=== PATIENT | female | born 1930 | race Caucasian/White ===

== ENCOUNTER → 2018-05-21 | Outpatient (CLI) | payer MEDICARE ==
[~2018-05-21] MED LIST: IOHEXOL-350 50ML VIAL IV ONE
== END | disposition home or self-care (01) ==
LOC: RAH 07:53
PROVIDERS: ATTEND Internal Medicine Cardiovascular Disease
DX: I67.1 Cerebral aneurysm, nonruptured (principal)
CPT/HCPCS: 70496; 70498; Q9967

== ENCOUNTER → 2018-05-25 | Outpatient (CLI) | payer MEDICARE | END | disposition home or self-care (01) | LOC: SHCH 08:01 | PROVIDERS: ATTEND Internal Medicine Cardiovascular Disease | DX: R60.9 Edema, unspecified (principal) | CPT/HCPCS: 93975 ==

== ENCOUNTER → 2018-06-02 | Outpatient (CLI) | payer MEDICARE ==
[~2018-06-02] VITALS: Ht 152.4 cm; Wt 58.1 kg
[~2018-06-02] MED LIST changes: +ASPI-1181 PO; +CALCIUM PO; +CLON0.1T PO; +ERGO400C PO; +FISH1CAP20 PO; -IOHEXOL-350 50ML VIAL IV ONE; +KETO5DRO6 OU; +LOSA100T58 PO; +METO-391 PO; +MULT1CAP32 PO; +PROP15DR OU; +REGADENOSON 0.4 MG/5 ML PF SYG IVP SCH
== END | disposition home or self-care (01) ==
LOC: SHCH 08:40
PROVIDERS: ATTEND Internal Medicine Cardiovascular Disease
DX: R06.00 Dyspnea, unspecified (principal); R00.2 Palpitations
CPT/HCPCS: 78452; 93017; 96374; A9500 ×2; J2785

== ENCOUNTER 2018-06-04 09:54 | Emergency (ER) | payer MEDICARE ==
[2018-06-04] MEDS ORDERED: NITROGLYCERIN 1GM/1 INCH PACKET TD ONE (10:23)
[2018-06-04 10:45] LABS: EOSINOPHILS % (AUTO) 2.3 % (0.0-8.0); HEMATOCRIT 46.5 % (36-48); LYMPHOCYTES % (AUTO) 22.3 % (21.0-51.0); MEAN CORPUSCULAR HEMOGLOBIN 31.3 pg (27.0-33.0); MEAN CORPUSCULAR HGB CONC 34.2 g/dL (32.0-36.0); MEAN CORPUSCULAR VOLUME 91.4 fL (79-99); MONOCYTES % (AUTO) 8.1 % (3.0-13.0); NEUTROPHILS % (AUTO) 66.3 % (40.0-77.0); NUCLEATED RED BLOOD CELLS 0.1 % (0.0-0.19); PLATELET COUNT (AUTO) 257 K/uL (130-400); RED BLOOD CELL COUNT(AUTO) 5.08 MIL/uL (4.00-5.50); RED CELL DISTRIBUTION WIDTH 13.4 % (11.0-15.5); WHITE BLOOD COUNT (AUTO) 4.4 K/uL (4.8-10.8)
[2018-06-04 10:53] LABS: CREATININE 0.8 mg/dL (0.5-1.5); POTASSIUM 4.1 mmol/L (3.5-5.1)
[2018-06-04 10:59] LABS: INR 0.91 (0.85-1.15); PARTIAL THROMBOPLASTIN TIME 26.8 SEC (26.3-35.5); PROTHROMBIN TIME 9.6 SEC (9.6-11.6)
[2018-06-04 11:02] LABS: ALBUMIN 3.9 g/dL (3.5-5.0); BILIRUBIN,TOTAL 0.6 mg/dL (0.2-1.0); TOTAL PROTEIN, SERUM 7.8 g/dL (6.0-8.3)
[2018-06-04 11:03] LABS: B-TYPE NATRIURETIC PEPTIDE 84 pg/mL (0-100)
[2018-06-04 11:05] LABS: APPEARANCE,URINE Clear (CLEAR); BILIRUBIN,URINE Negative (NEGATIVE); COLOR,URINE Yellow (YELLOW); GLUCOSE, URINE (UA) Negative (NEGATIVE); KETONES,URINE Negative (NEGATIVE); LEUKOCYTE ESTERASE ,URINE Trace (NEGATIVE); NITRATE,URINE Negative (NEGATIVE); OCCULT BLOOD,URINE Negative (NEGATIVE); PH,URINE 7.5 (5.0-8.0); PROTEIN,URINE Trace mg/dL (NEGATIVE)
[2018-06-04 11:32] LABS: BACTERIA,URINE Rare /HPF (None Seen); RBC,URINE 0-1 /HPF (0-1); SQUAMOUS EPITHELIAL CELL,UR Rare /HPF (0-2); WBC,URINE 0-1 /HPF (0-1)
[2018-06-04] MEDS ORDERED: CLONIDINE HCL 0.1 MG TABLET ONE (11:33)
[2018-06-09] MEDS ORDERED: CLON0.1T PO (14:40)
[2018-06-09] MEDS ORDERED: ASPI-1181 PO (14:40)
[2018-06-09] MEDS ORDERED: ERGO400C PO (14:40)
[2018-06-09] MEDS ORDERED: KETO5DRO6 OU (14:40)
[2018-06-09] MEDS ORDERED: LOSA100T58 PO (14:40)
[2018-06-09] MEDS ORDERED: FISH1CAP20 PO (14:40)
[2018-06-09] MEDS ORDERED: PROP15DR OU (14:40)
[2018-06-09] MEDS ORDERED: METO-391 PO (14:40)
[2018-06-09] MEDS ORDERED: MULT1CAP32 PO (14:40)
[2018-06-09] MEDS ORDERED: CALCIUM PO (14:40)
== END 2018-06-04 12:47 | disposition home or self-care (01) ==
LOC: EDH 09:54
DX: I10 Essential (primary) hypertension (principal); R51 Headache; Z88.0 Allergy status to penicillin; Z88.2 Allergy status to sulfonamides; Z90.49 Acquired absence of other specified parts of digestive tract
CPT/HCPCS: 36415; 70450; 71045; 80053; 81001; 82550; 83880; 84484; 85025; 85610; 85730; 93005; 99291

== ENCOUNTER 2018-06-10 05:48 | Day surgery (SDC) | payer MEDICARE ==
[2018-06-09 13:45] VITALS: BP 203/77
[2018-06-09 14:08] LABS: APPEARANCE,URINE CLEAR (CLEAR); BASOPHILS % (AUTO) 0.6 % (0.0-5.0); BILIRUBIN,URINE NEGATIVE (NEGATIVE); COLOR,URINE YELLOW (YELLOW); EOSINOPHILS % (AUTO) 2.1 % (0.0-8.0); GLUCOSE, URINE (UA) NEGATIVE (NEGATIVE); HEMATOCRIT 42.4 % (36-48); KETONES,URINE NEGATIVE (NEGATIVE); LEUKOCYTE ESTERASE ,URINE SMALL (NEGATIVE); LYMPHOCYTES % (AUTO) 20.1 % (21.0-51.0); MEAN CORPUSCULAR HEMOGLOBIN 32.2 pg (27.0-33.0); MEAN CORPUSCULAR HGB CONC 35.1 g/dL (32.0-36.0); MEAN CORPUSCULAR VOLUME 91.6 fL (79-99); MONOCYTES % (AUTO) 9.7 % (3.0-13.0); NEUTROPHILS % (AUTO) 67.5 % (40.0-77.0); NITRATE,URINE NEGATIVE (NEGATIVE); OCCULT BLOOD,URINE NEGATIVE (NEGATIVE); PH,URINE 6.5 (5.0-8.0); PLATELET COUNT (AUTO) 257 K/uL (130-400); PROTEIN,URINE NEGATIVE (NEGATIVE); RED BLOOD CELL COUNT(AUTO) 4.63 MIL/uL (4.00-5.50); RED CELL DISTRIBUTION WIDTH 13.3 % (11.0-15.5); UROBILINOGEN,URINE 0.2 mg/dL (0.2-1.0); WHITE BLOOD COUNT (AUTO) 4.8 K/uL (4.8-10.8)
[2018-06-09 14:19] LABS: CREATININE 0.8 mg/dL (0.5-1.5); POTASSIUM 4.4 mmol/L (3.5-5.1)
[2018-06-09 14:21] LABS: INR 0.96 (0.85-1.15); PROTHROMBIN TIME 10.1 SEC (9.6-11.6)
[2018-06-09 14:22] LABS: BACTERIA,URINE Rare /HPF (None Seen); RBC,URINE None Seen /HPF (0-1); SQUAMOUS EPITHELIAL CELL,UR 0-2 /HPF (0-2); WBC,URINE 0-1 /HPF (0-1)
--- NOTE | 2018-06-09 15:17 | NUR ---
[facility] LEFT MESSAGE TO INFECTION CONTROL DEJUAN HEARD OF HAVING MRSA IN 2009 S/P OPEN CHOLECYSTECTOMY AND ERCP TO REMOVE BILE DUCT STONE. HAD PERFORATION OF INTESTINE AND WAS AT [facility] X 1 MONTH AND AT [facility] 1 MONTH.
--- NOTE | 2018-06-09 15:21 | NUR ---
[facility] INVOICE CHECKER NOTIFIED OF PATIENT HISTORY OF MRSA.
[2018-06-10] VITALS (12 sets, daily range): BP systolic 132–212; BP diastolic 57–81
[~2018-06-10] VITALS: Ht 478 cm; Wt 58.2 kg
[~2018-06-10 05:48] MED LIST changes: -REGADENOSON 0.4 MG/5 ML PF SYG IVP SCH; +SODIUM CHLORIDE 0.9% 500ML 500 ML IV SCH
[2018-06-10] MEDS ORDERED: SODIUM CHLORIDE 0.9% 1000ML 1,000 ML IV ONE (06:15)
[2018-06-10] MEDS ORDERED: HEPARIN SODIUM 1000UNIT/ML 10ML VIAL ONE (09:44)
[2018-06-10] MEDS ORDERED: SODIUM BICARB 50MEQ 50ML VIAL ONE (09:44)
[2018-06-10] MEDS ORDERED: NITROGLYCERIN 5 MG/ML 10 ML VIAL IV ONE (09:45)
[2018-06-10] MEDS ORDERED: LIDOCAINE HCL 2% 20ML ONE (09:45)
[2018-06-10] MEDS ORDERED: IOHEXOL 350 MG/ML 100ML INFUS..BTL IV ONE (09:50)
--- NOTE | 2018-06-10 10:00 | NUR ---
TO CREDIT REFERENCE CLERK PT TAKEN TO CREDIT REFERENCE CLERK VIA BED BY ALISON HOFFMANN RN. PT STABLE. VOIDED PRIOR.
[2018-06-10] MEDS ORDERED: MEPERIDINE-PF 25 MG/ML SYG ONE (10:25)
[2018-06-10] MEDS ORDERED: MIDAZOLAM HCL 1 MG/ML 2ML VIAL ONE (10:26)
[2018-06-10] MEDS ORDERED: NITROGLYCERIN 4.1 GM SPRAY TL ONE (10:42)
[2018-06-10] MEDS ORDERED: HYDRALAZINE HCL 20 MG/ML VIAL ONE (10:42)
[2018-06-10] MEDS ORDERED: SODIUM CHLORIDE 0.9% 1000ML 1,000 ML IV SCH (11:07)
[2018-06-10] MEDS ORDERED: ACETAMINOPHEN-CODEINE 300/30MG TAB PO PRN ×2 (11:15)
--- NOTE | 2018-06-10 11:30 | NUR ---
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 AWAKE ALERT ORIENTED X3. PT STABLE, NO COMPLAINTS MADE. CATH SITE TO RIGHT GROIN SOFT, GAUZE/OPSITE DRESSING DRY AND INTACT, NO OOZING NO HEMATOMA NOTED. PT INSTRUCTED TO KEEP RIGHT LEG STRAIGHT AND NOT TO ELEVATE HEAD. PT VERBALIZED UNDERSTANDING. TOLERATED ORAL FLUIDS WELL. PT STATES SHE IS NOT HUNGRY OF NOW, NOT TO ORDER HER TRAY.
--- NOTE | 2018-06-10 14:00 | NUR ---
NOTE PT OFFERED BEDPAN, ATTEMPTED TO VOID, PT STATES SHE IS NOT ABLE TO, WILL WAIT WHEN BEDREST IS UP. NO COMPLAINTS OF PAIN. Addendum: 06/10/18 at 1614 by JOLIE SALES RN RN ERROR IN TIME, CHANGE TIME TO 1405
--- NOTE | 2018-06-10 15:15 | NUR ---
ACTIVITY PT ASSISTED TO BATHROOM, AMBULATED WITHOUT ANY PROBLEMS. CATH SITE RIGHT GROIN REMAINS SOFT, DRESSING NO OOZING NO HEMATOMA NOTED. VOIDED CLEAR YELLOW URINE 800 ML.
--- NOTE | 2018-06-10 15:40 | NUR ---
DISCHARGE PT DISCHARGED VIA WHEELCHAIR WITH . PT STABLE. NOT IN ANY APPARENT DISTRESS. DISCHARGE INSTRUCTIONS GIVEN TO AND PT, ALSO DEMONSTRATED TO ON HOW TO MONITOR CATH SITE FOR BLEEDING, HEMATOMA, APPLY DIRECT PRESSURE,CALL 911. VERBALIZED UNDERSTANDING.
== END 2018-06-10 15:40 | disposition home or self-care (01) ==
LOC: DAH 05:48
PROVIDERS: ATTEND Internal Medicine Cardiovascular Disease
DX: I25.10 Atherosclerotic heart disease of native coronary artery without angina pectoris (principal); I70.1 Atherosclerosis of renal artery; I10 Essential (primary) hypertension; Z79.01 Long term (current) use of anticoagulants; R07.9 Chest pain, unspecified; Z79.899 Other long term (current) drug therapy; E78.5 Hyperlipidemia, unspecified; J45.909 Unspecified asthma, uncomplicated; I67.1 Cerebral aneurysm, nonruptured; Z98.890 Other specified postprocedural states; Z88.2 Allergy status to sulfonamides; Z88.0 Allergy status to penicillin
CPT/HCPCS: 36252; 36415; 80048; 81001; 85025; 85610; 85730; 93005; 93458; A4606; C1760; C1894; J0360; J1644; J2175; J2250; J3490 ×3; J7030; Q9965 ×2; Q9967; 99156; 99157

== ENCOUNTER → 2021-01-31 | Outpatient (CLI) | payer MEDICARE ==
[~2021-01-31] MED LIST changes: +ALBUTEROL 0.083% 2.5 MG/3 ML INH IH ONE; -ASPI-1181 PO; +ASPI-1443 PO; -LOSA100T58 PO; -METO-391 PO; -SODIUM CHLORIDE 0.9% 500ML 500 ML IV SCH
== END | disposition home or self-care (01) ==
LOC: RESP 10:29
PROVIDERS: ATTEND Internal Medicine Cardiovascular Disease
DX: R06.00 Dyspnea, unspecified (principal)
CPT/HCPCS: 94060; 94727; 94729

== ENCOUNTER 2021-05-22 18:15 | Emergency (ER) | payer MEDICARE ==
[~2021-05-22 18:15] MED LIST changes: -ALBUTEROL 0.083% 2.5 MG/3 ML INH IH ONE
[2021-05-22] MEDS ORDERED: ONDANSETRON 4MG INJ IVP ONE (19:00)
[2021-05-22] MEDS ORDERED: 0.9%NACL 1000ML 1,000 ML IV ONE (19:00)
[2021-05-22 19:22] LABS: APPEARANCE,URINE Clear (CLEAR); BILIRUBIN,URINE Negative (NEGATIVE); COLOR,URINE Yellow (YELLOW); GLUCOSE, URINE (UA) Negative (NEGATIVE); KETONES,URINE Trace mg/dL (NEGATIVE); LEUKOCYTE ESTERASE ,URINE Trace (NEGATIVE); NITRATE,URINE Negative (NEGATIVE); OCCULT BLOOD,URINE Negative (NEGATIVE); PH,URINE 5.5 (5.0-8.0); PROTEIN,URINE Negative (NEGATIVE); UROBILINOGEN,URINE 0.2 mg/dL (0.2-1.0)
[2021-05-22 19:34] LABS: BACTERIA,URINE None Seen /HPF (None Seen); RBC,URINE 0-1 /HPF (0-1); SQUAMOUS EPITHELIAL CELL,UR 0-2 /HPF (0-2); WBC,URINE 0-1 /HPF (0-1)
[2021-05-22] MEDS ORDERED: ONDANSETRON 4MG INJ ONE (22:31)
[2021-05-22 22:46] LABS: BASOPHILS % (AUTO) 0.4 % (0.0-5.0); EOSINOPHILS % (AUTO) 0.2 % (0.0-8.0); HEMATOCRIT 39.4 % (36-48); LYMPHOCYTES % (AUTO) 15.2 % (21.0-51.0); MEAN CORPUSCULAR HEMOGLOBIN 30.3 pg (27.0-33.0); MEAN CORPUSCULAR HGB CONC 35.8 g/dL (32.0-36.0); MEAN CORPUSCULAR VOLUME 84.7 fL (79-99); MONOCYTES % (AUTO) 11.3 % (3.0-13.0); NEUTROPHILS % (AUTO) 72.5 % (40.0-77.0); PLATELET COUNT (AUTO) 273 K/uL (130-400); RED BLOOD CELL COUNT(AUTO) 4.65 MIL/uL (4.00-5.50); RED CELL DISTRIBUTION WIDTH 12.2 % (11.0-15.5); WHITE BLOOD COUNT (AUTO) 4.9 K/uL (4.8-10.8)
[2021-05-22 22:51] VITALS: BP 150/65
[2021-05-22 22:59] LABS: CREATININE 0.9 mg/dL (0.5-1.5); POTASSIUM 3.4 mmol/L (3.5-5.1)
[2021-05-22 23:04] LABS: ALBUMIN 3.6 g/dL (3.5-5.0); BILIRUBIN,TOTAL 0.4 mg/dL (0.2-1.0); TOTAL PROTEIN, SERUM 6.8 g/dL (6.0-8.3)
[2021-05-22] MEDS ORDERED: DICYCLOMINE 20MG (10MG/ML) AMP IM STA (23:33)
[2021-05-22] MEDS ORDERED: CEFTRIAXONE 1G VIAL ONE (23:50)
[2021-05-23] MEDS ORDERED: KETOROLAC 15MG/ML VIAL (15MG/ML) IV ONE
[2021-05-23] MEDS ORDERED: DICY10 PO (00:06)
[2021-05-23] MEDS ORDERED: ONDA4TAB10 PO (00:06)
== END 2021-05-23 00:29 | disposition home or self-care (01) ==
LOC: EDH 18:15
DX: A08.4 Viral intestinal infection, unspecified (principal); N39.0 Urinary tract infection, site not specified; I10 Essential (primary) hypertension; M81.0 Age-related osteoporosis without current pathological fracture; Z79.1 Long term (current) use of non-steroidal anti-inflammatories (NSAID); Z79.82 Long term (current) use of aspirin; Z88.0 Allergy status to penicillin; Z88.2 Allergy status to sulfonamides
CPT/HCPCS: 36415; 80053; 81001; 83690; 84484; 85025; 93005; 96372; 96374; 96375 ×2; 99284; J0500; J0696; J1885; J2405